=== PATIENT | male | born 1945 | race Caucasian/White ===

== ENCOUNTER 2022-11-09 10:14 | Emergency (ER) | payer MEDICARE, SELFPAY ==
[2022-11-09 10:29] VITALS: BP 165/71; PULSE 62; RESP 18; TEMP 36.9; O2SAT 98
[2022-11-09 10:43] VITALS: BP 165/71; PULSE 62; RESP 18; TEMP 36.9; O2SAT 98
--- NOTE | 2022-11-09 11:39 | ED.GENADULT ---
HPI - General Adult General Chief complaint: Skin/Abscess/Foreign Body Stated complaint: Skin Sore/ Right Leg Source: patient Mode of arrival: ambulatory Limitations: no limitations History of Present Illness HPI narrative: Patient presents for evaluation of a blister to the posterior aspect of the right lower leg. Symptom onset 2 days ago. He indicates he scratched the back of his leg against his deck 2 days ago. He was wearing jeans at the time. He questioned whether a splinter may have caused the blister. It has continued to expand since the time he first noticed it. He has chronic BLE edema 2/2 CHF. Current swelling unchanged from his baseline. He also has chronic redness to right lower extremity and his current symptoms are unchanged from baseline. He has DM for which he takes 60 units lantus daily. Home BS 90-140. No fever, chills, nausea, vomiting, purulence from the affected area. Last tetanus four years ago. He is anticoagulated with eliquis for atrial fibrillation. Related Data Home Medications Medication Instructions Recorded Confirmed amlodipine 5 mg tablet 5 mg PO DAILY 11/09/22 11/09/22 carvedilol 25 mg tablet 25 mg PO DAILY 11/09/22 11/09/22 furosemide 40 mg tablet 40 mg PO DAILY 11/09/22 11/09/22 insulin glargine 100 unit/mL See Rx Instructions .Route .COMPLEX 11/09/22 11/09/22 subcutaneous solution (Lantus U-100 Insulin) losartan 50 mg tablet 50 mg PO DAILY 11/09/22 11/09/22 potassium chloride 10 mEq 10 meq PO DAILY 11/09/22 11/09/22 tablet,extended release Allergies Allergy/AdvReac Type Severity Reaction Status Date / Time [id number] Reductase AdvReac Muscle Pain Verified 11/09/22 10:44 Inhibitor Review of Systems Review of Systems: CONSTITUTIONAL: Denies fever, chills, or sweats. EYES: Denies visual changes, redness, or discharge. ENT: Denies rhinorrhea, congestion, sore throat, or otalgia. CARDIOVASCULAR: Denies chest pain, palpitations, or edema. RESPIRATORY: Denies cough or dyspnea. GASTROINTESTINAL: Denies abdominal pain, nausea, vomiting, or diarrhea. GENITOURINARY: Denies dysuria or hematuria. SKIN: Reports chronic redness to RLE, unchanged from baseline. Reports blistered lesion to posterior aspect of right lower leg. Denies rash or itching. MUSCULOSKELETAL: Denies back pain, joint pain, or myalgia. NEUROLOGIC: Denies headache, numbness, dizziness, or weakness. PSYCHIATRIC: Denies anxiety or depression. [facility] Past Medical History Medical History Atrial fibrillation CHF (congestive heart failure) Coronary artery disease Diabetes Surgical History Surgical History History of heart artery stent History of left knee replacement History of right shoulder replacement Family History Family History Mother Family history non-contributory Social History Social History Smoking status: Never smoker Substance use: never Living arrangements: with family Gender identity (if verbalized by the patient): Male Sexual Orientation (if Verbalized by the Patient): Straight or Heterosexual Spiritual care concerns: No Exam Narrative: GENERAL: Well-appearing, well-nourished, and in no acute distress. HEAD: Normocephalic, atraumatic. EYES: PERRLA and EOMI. ENT: Nares clear, no rhinorrhea or epistaxis. Mucous membranes moist. Oropharynx without tonsillar hypertrophy exudate or other lesions. Bilateral TMs pearly cannon nonbulging NECK: Supple. No adenopathy or masses. No carotid bruits or JVD CHEST: Clear to auscultation. No respiratory distress. No wheezes rales or rhonchi HEART: Regular rate and rhythm. No murmur heard. Normal peripheral pulses. ABDOMEN: Soft, nontender, nondistended, normal active bowel sounds. EXTR
== END 2022-11-09 11:35 | disposition home or self-care (01) ==
PROVIDERS: Emergency Provider Nurse Practitioner; PCP Family Medicine
DX: S80.821A Blister (nonthermal), right lower leg, initial encounter (principal); X58.XXXA Exposure to other specified factors, initial encounter; E11.9 Type 2 diabetes mellitus without complications; Z79.4 Long term (current) use of insulin; I48.91 Unspecified atrial fibrillation; I25.10 Atherosclerotic heart disease of native coronary artery without angina pectoris; I50.9 Heart failure, unspecified; Z95.5 Presence of coronary angioplasty implant and graft; Z96.652 Presence of left artificial knee joint; Z96.611 Presence of right artificial shoulder joint
CPT/HCPCS: 99213; G0463